=== PATIENT | female | born 1995 | race Caucasian/White ===

== ENCOUNTER 2021-07-17 07:55 | Emergency (ER) | payer MEDICAID ==
[~2021-07-17] VITALS: Ht 165.1 cm; Wt 96.4 kg
--- NOTE | 2021-07-17 08:20 | PHYS DOC ---
Past History Past Medical History: Kidney Stones Past Surgical History: Cholecystectomy, Tonsillectomy, Other Additional Past Surgical Histo: L ACL; ADNOIDECTOMY General Adult EDM: Chief Complaint: ABDOMINAL PAIN HPI: HPI: 26-year-old female presents with report of left upper quadrant and left flank pain with radiation to right upper quadrant that has been ongoing for the past few days. Reports associated nausea and vomiting. Denies trauma. Denies fever or chills. Denies dysuria or hematuria. Denies rash. Patient does have history of prior cholecystectomy. Reports normal bowel movement. Denies p regnancy. Patient does report prior history of kidney stones. Review of Systems: Review of Systems: Constitutional: Denies fever or chills Eyes: Denies redness or eye pain HENT: Denies nasal congestion or sore throat Respiratory: Denies cough or shortness of breath Cardiovascular: Denies chest pain or palpitations GI: Reports left upper quadrant abdominal pain, nausea, and vomiting : Denies dysuria or hematuria Musculoskeletal: Denies joint pain; reports left flank pain Integument: Denies rash or skin lesions Neurologic: Denies headache, focal weakness or sensory changes Complete systems were reviewed and found to be within normal limits, except as documented in this note. Allergies: Allergies: Allergies Coded Allergies Type Severity Reaction Last Updated Verified amoxicillin Allergy Unknown Hives 07/17/21 Yes Physical Exam: PE: Constitutional: Well developed, well nourished, no acute distress, non-toxic appearance HENT: Normocephalic, atraumatic Eyes: Conjunctiva normal, no discharge Neck: Normal range of motion, supple Lungs & Thorax: No respiratory distress, equal chest rise and fall Abdomen: Soft, LUQ tenderness Skin: Warm, dry, no erythema, no rash Back: No tenderness, left CVA tenderness Extremities: No tenderness, ROM intact, no edema Neurologic: Alert and oriented X 3, no focal deficits noted Psychologic: Affect normal, judgment normal Current Patient Data: Vital Signs: Vital Signs Date Time Temp Pulse Resp B/P (MAP) Pulse Ox O2 Delivery O2 Flow Rate FiO2 07/17/21 08:05 98.2 123 18 144/95 (111) 95 Room Air EKG: EKG: [] Radiology/Procedures: Radiology/Procedures: PROCEDURE: CT ABDOMEN PELVIS WO CONTRAST CT STUDY OF THE ABDOMEN AND PELVIS WITHOUT CONTRAST CLINICAL INDICATIONS: Left upper quadrant/left flank pain. TECHNIQUE: Noncontrast helical CT scanning of the abdomen and pelvis was performed. Without contrast, the sensitivity to detect organ pathology and GI tract pathology is decreased. PQRS compliance Statement One or more of the following individualized dose reduction techniques were utilized for this study: 1. Automated exposure control 2. Adjustment of the mA and/or kV according to patient size 3. Use of iterative reconstruction technique COMPARISON: None available. FINDINGS: The liver and spleen and pancreas are unremarkable on this noncontrast study. Gallbladder is surgically absent. No extra hepatic biliary ductal dilatation is seen. No adrenal mass is evident. No hydronephrosis or hydroureter or urinary tract stone is evident. Urinary bladder is not distended. 5.2 cm right ovarian cyst is seen. The appendix is normal. No obstructive bowel pattern is seen. No free intraperitoneal air or free fluid or mesenteric edema is seen. No anterior abdominal wall hernia is evident. No lung base consolidation is evident. No lytic process is seen. IMPRESSION: 5.2 cm right ovarian cyst. No free fluid is evident. No urinary tract stone or hydronephrosis or hydroureter is evident. Electronically signed by: Nash Carranza MD (07/17/2021 10:17 AM) [id number] Heart Score: C/O Chest Pain: N/A Course & Med Decision Making: Course & Med Decision Making Pertinent Labs and Imaging studies reviewed. (See chart for details) Patient presents with left upper quadrant/left flank pain with associated nausea and vomiting. Reports history of prior kidney stones. Pain and nausea addressed. IV fluid hydration given. Labs obtained and posted to chart. UA nitrate positive. Empiric antibiotic initiated. CT abdomen/pelvis without acute finding. Patient stable for discharge with outpatient follow-up with PCP. Discussed findings and plan with patient, who acknowledges understanding and agreement. Alisa Disclaimer: Alisa Disclaimer: This electronic medical record was generated, in whole or in part, using a voice recognition dictation system. Departure Departure: Impression: Primary Impression: Pyelonephritis Disposition: HOME / SELF CARE / HOMELESS Condition: STABLE Referrals: PCP,NO (PCP) Patient Instructions: Pyelonephritis, Adult, [id number] Additional Instructions: May also take over the counter Ibuprofen as needed for pain. Increase fluid hydration. Scripts Cephalexin (KEFLEX) 500 Mg Capsule 1 CAP PO TID for UTI for 7 Days, #21 CAP Prov: MUNIZ,IRA R DO 07/17/21 Hydrocodone Bit/Acetaminophen (HYDROCODONE-APAP 5-325 ) 1 Each Tablet 0.5-1 TAB PO PRN Q6HRS PRN for PAIN, #10 TAB 0 Refills Prov: IRA MUNIZ DO 07/17/21 Ondansetron (ONDANSETRON ODT) 4 Mg Tab.rapdis 1 TAB PO PRN Q6-8HRS PRN for NAUSEA, #16 TAB Prov: IRA MUNIZ DO 07/17/21 IRA MUNIZ DO Jul 17, 2021 08:20
[2021-07-17] MEDS: IV NORMAL SALINE 1,000ML 1,000 ML IV ONE (08:32)
[2021-07-17] MEDS: KETOROLAC 15 MG/ML VIAL. IVP ONE (08:33)
[2021-07-17] MEDS: METOCLOPRAMIDE HCL 10 MG/2 ML VIAL. IVP ONE (08:36)
[2021-07-17 09:05] LABS: BASO % 0 % (0-3); EOS # 0.1 x10^3/uL (0.0-0.7); EOS % 1 % (0-3); HEMATOCRIT 43.1 % (36.0-47.0); HEMOGLOBIN 14.6 g/dL (12.0-15.5); LYMPH # 0.6 x10^3/uL (1.0-4.8); LYMPH % 9 % (24-48); MEAN CORPUSCULAR HEMOGLOBIN 30 pg (25-35); MEAN CORPUSCULAR HGB CONC 34 g/dL (31-37); MEAN CORPUSCULAR VOLUME 89 fL (79-100); MONO # 0.5 x10^3/uL (0.0-1.1); MONO % 7 % (0-9); NEUT # 5.6 x10^3uL (1.8-7.7); NEUT % 83 % (31-73); PLATELET COUNT 185 x10^3/uL (140-400); RED BLOOD COUNT 4.83 x10^6/uL (3.50-5.40); RED CELL DISTRIBUTION WIDTH 12.9 % (11.5-14.5); WHITE BLOOD COUNT 6.8 x10^3/uL (4.0-11.0)
[2021-07-17 09:06] LABS: CALCIUM 8.4 mg/dL (8.5-10.1); CREATININE 0.5 mg/dL (0.6-1.0); GFR 151.6; POTASSIUM 3.5 mmol/L (3.5-5.1)
[2021-07-17 09:15] LABS: ALBUMIN 3.7 g/dL (3.4-5.0); ALBUMIN/GLOBULIN RATIO 0.9 (1.0-1.7); MAGNESIUM 1.9 mg/dL (1.8-2.4); TOTAL BILIRUBIN 1.1 mg/dL (0.2-1.0); TOTAL PROTEIN 7.6 g/dL (6.4-8.2)
[2021-07-17 09:42] LABS: BILIRUBIN,URINE NEG (NEG); CLARITY,URINE CLEAR; COLOR,URINE YELLOW; GLUCOSE,URINE NEG (NEG); NITRITE,URINE POS (NEG)
[2021-07-17 09:53] LABS: BACTERIA,URINE 0 /HPF (0-FEW); SQUAMOUS EPITHELIAL CELL,UR MOD /LPF
--- NOTE | 2021-07-17 10:19 | RAD ---
CT STUDY OF THE ABDOMEN AND PELVIS WITHOUT CONTRAST CLINICAL INDICATIONS: Left upper quadrant/left flank pain. TECHNIQUE: Noncontrast helical CT scanning of the abdomen and pelvis was performed. Without contrast, the sensitivity to detect organ pathology and GI tract pathology is decreased. PQRS compliance Statement One or more of the following individualized dose reduction techniques were utilized for this study: 1. Automated exposure control 2. Adjustment of the mA and/or kV according to patient size 3. Use of iterative reconstruction technique COMPARISON: None available. FINDINGS: The liver and spleen and pancreas are unremarkable on this noncontrast study. Gallbladder i s surgically absent. No extra hepatic biliary ductal dilatation is seen. No adrenal mass is evident. No hydronephrosis or hydroureter or urinary tract stone is evident. Urinary bladder is not distended. 5.2 cm right ovarian cyst is seen. The appendix is normal. No obstructive bowel pattern is seen. No free intraperitoneal air or free fluid or mesenteric edema is seen. No anterior abdominal wall hernia is evident. No lung base consolidation is evident. No lytic process is seen. IMPRESSION: 5.2 cm right ovarian cyst. No free fluid is evident. No urinary tract stone or hydronephrosis or hydroureter is evident. Electronically signed by: Nash Carranza MD (07/17/2021 10:17 AM) [id number]
[2021-07-17] MEDS ORDERED: ONDA4TAB12 PO (10:47)
[2021-07-17] MEDS ORDERED: CEPH500C PO (10:47)
[2021-07-17] MEDS ORDERED: HYDR-2155 PO (10:47)
[2021-07-17] MEDS ORDERED: IV NORMAL SALINE 50ML 50 ML ONE (11:08)
[2021-07-17] MEDS ORDERED: cefTRIAXone SODIUM 1 GM VIAL ONE (11:08)
[2021-07-17 12:29] VITALS: BP 138/76
== END 2021-07-17 12:29 | disposition home or self-care (01) ==
LOC: ER 07:55
DX: N12 Tubulo-interstitial nephritis, not specified as acute or chronic (principal); Z88.1 Allergy status to other antibiotic agents; Z90.49 Acquired absence of other specified parts of digestive tract; Z87.442 Personal history of urinary calculi
CPT/HCPCS: 36415; 74176; 80053; 81001; 81025; 83690; 83735; 85025; 87086; 96361; 96365; 96375; 99285; J0696; J1885; J2765; J7030

== ENCOUNTER 2021-11-21 18:45 | Emergency (ER) | payer MEDICAID ==
[~2021-11-21] VITALS: Ht 165.1 cm; Wt 99.5 kg
[2021-11-21 18:45] VITALS: BP 149/98
[~2021-11-21 18:45] MED LIST: CEPH500C PO; HYDR-2155 PO; ONDA4TAB12 PO
[2021-11-21] MEDS ORDERED: AZIT250T6 PO (19:14)
[2021-11-21] MEDS ORDERED: AZITHROMYCIN 250 MG TABLET. PO ONE (19:15)
[2021-11-21] MEDS ORDERED: diphenhydrAMINE HCL 25 MG CAPSULE PO ONE (19:15)
[2021-11-21] MEDS ORDERED: DEXAMETHASONE 4 MG TABLET PO ONE (19:15)
[2021-11-21] MEDS ORDERED: IBUPROFEN 600 MG TABLET. PO ONE (19:15)
[2021-11-21] MEDS ORDERED: ACETAMINOPHEN 500 MG TABLET PO ONE (19:15)
--- NOTE | 2021-11-21 19:16 | PHYS DOC ---
Past History Past Medical History: Kidney Stones Past Surgical History: Cholecystectomy, Tonsillectomy, Other Additional Past Surgical Histo: L ACL; adenoidectomy Smoking: Non-smoker Alcohol Use: None Drug Use: None Adult General Chief Complaint Chief Complaint: EARACHE/EAR PAIN HPI HPI Patient is a 26-year-old female presents with earache Review of Systems Review of Systems Review of systems otherwise unremarkable except noted in HPI Allergies Allergies Allergies Coded Allergies Type Severity Reaction Last Updated Verified amoxicillin Allergy Unknown Hives 07/17/21 Yes Physical Exam Physical Exam Constitutional: Well developed, well nourished, no acute distress, non-toxic appearance. [] HENT: Normocephalic, atraumatic, bilateral external ears normal, left tympanic membrane, erythematous, opaque, and bulging, oropharynx moist, no oral exudates, mild posterior oropharyngeal erythema, no tonsils, nose normal. [] Eyes: conjunctiva normal, no discharge. [] Neck: Normal range of motion, no tenderness, supple, no stridor. [] Cardiovascular:Heart rate regular rhythm, no murmur [] Lungs & Thorax: Bilateral breath sounds clear to auscultation [] Neurologic: Alert and oriented X 3, normal motor function, normal sensory function, no focal deficits noted. [] Psychologic: Affect normal, judgement normal, mood normal. [] Current Patient Data Vital Signs Vital Signs Date Time Temp Pulse Resp B/P (MAP) Pulse Ox O2 Delivery O2 Flow Rate FiO2 11/21/21 18:45 88 149/98 (115) 98 11/21/21 18:45 16 Room Air EKG EKG [] Radiology/Procedures Radiology/Procedures [] Heart Score C/O Chest Pain: No Risk Factors: Risk Factors: DM, Current or recent (<one month) smoker, HTN, HLP, family history of CAD, obesity. Risk Scores: Risk Factors: DM, Current or recent (<one month) smoker, HTN, HLP, family history of CAD, obesity. Course & Med Decision Making Course & Med Decision Making Patient is a 26-year-old female presents with earache Vital signs nonconcerning. Physical exam noted above. Started on antibiotics for otitis media. Given medications for symptom control Discussed symptom management at home. Advised to follow-up with primary care physician. Gave return precautions to the ED. Patient grateful, verbalized understanding and agreed with plan of discharge. [] Dragon Disclaimer Dragon Disclaimer This electronic medical record was generated, in whole or in part, using a voice recognition dictation system. Departure Departure: Impression: Primary Impression: Otitis media Disposition: HOME / SELF CARE / HOMELESS Condition: STABLE Referrals: PCP,JESSICA (PCP) YVETTE DUONG Patient Instructions: Otitis Media, Adult, Viral Syndrome Additional Instructions: Thank you for coming into the emergency department tonight and allowing us to take care of you. Please read all the attached information carefully to go over things we discussed. You can take Tylenol, ibuprofen and Benadryl as needed. A good course over the next couple of days would be 1000 mg of Tylenol every 8 hours, 600 mg of ibuprofen every 6 hours and 50 mg of Benadryl every 6 hours as long as you can tolerate these and are not allergic. Please follow-up with your primary care physician as soon as you can update on your ED visit. Please come back with new or concerning symptoms as we discussed. Scripts Azithromycin (AZITHROMYCIN TABLET) 250 Mg Tablet 250 MG PO DAILY for otitis for 4 Days, #4 TAB 0 Refills Prov: RUTH REYNOLDS MD 11/21/21 RUTH REYNOLDS MD Nov 21, 2021 19:16
== END 2021-11-21 19:30 | disposition home or self-care (01) ==
LOC: ER 18:45
DX: H66.92 Otitis media, unspecified, left ear (principal); Z87.442 Personal history of urinary calculi; Z88.1 Allergy status to other antibiotic agents
CPT/HCPCS: 99284; J8540; Q0163